=== PATIENT | male | born 1965 | race Caucasian/White ===

== ENCOUNTER 2019-09-20 20:13 | Emergency (ER) | payer BC, OTHER ==
[2019-09-20] MEDS ORDERED: Lidocaine 1% w/Epinephrine 1:100K 20 ML VIAL ONE (20:26)
[2019-09-20] MEDS ORDERED: Adacel (T-DAP) 0.5 ML SYRINGE ONE (20:28)
--- NOTE | 2019-09-20 21:09 | RAD ---
EXAM: 3 views of the left hand COMPARISON: None HISTORY: Hand pain FINDINGS: 3 views of the hand shows no evidence of acute fracture or dislocation. No degenerative wan nges are seen. No soft tissue swelling is present. IMPRESSION: Unremarkable exam.
[2019-09-20] MEDS ORDERED: Bacitracin 1 PK ONE (21:15)
== END 2019-09-20 21:24 | disposition home or self-care (01) ==
LOC: ERS 20:13
DX: S61.211A Laceration without foreign body of left index finger without damage to nail, initial encounter (principal); I10 Essential (primary) hypertension; W26.9XXA Contact with unspecified sharp object(s), initial encounter
CPT/HCPCS: 12042; 90471; 90715

== ENCOUNTER 2020-12-05 14:58 | Outpatient (CLI) | payer BC | END 2020-12-05 14:59 | disposition home or self-care (01) | LOC: BICRAD 14:58 | PROVIDERS: ATTEND Physician Assistant | DX: M54.42 Lumbago with sciatica, left side (principal); M47.816 Spondylosis without myelopathy or radiculopathy, lumbar region | CPT/HCPCS: 72100 ==

== ENCOUNTER 2020-12-14 12:37 | Outpatient (CLI) | payer BC | END 2020-12-14 12:38 | disposition home or self-care (01) | LOC: TBSIIMAG 12:37 | PROVIDERS: ATTEND Family Medicine | DX: M54.42 Lumbago with sciatica, left side (principal); M51.36 Other intervertebral disc degeneration, lumbar region; M47.816 Spondylosis without myelopathy or radiculopathy, lumbar region | CPT/HCPCS: 72148 ==